=== PATIENT | female | born 1965 | race Caucasian/White ===

== ENCOUNTER 2018-12-26 09:06 | Day surgery (SDC) | payer BC ==
[~2018-12-26] VITALS: Ht 170.2 cm; Wt 116.1 kg
[~2018-12-26 09:06] MED LIST: ATOR40TA PO; B Complex1 EAC2 PO; CALC1.25T PO; CENTRUM COMPLE1 EACH; CENTRUM COMPLE1 EACH PO; CHOL10002; CO Q10100 MG; Coq-10100 MG PO; DHEA 10 MG TAB1 EACH PO; DHEA PO; ESTR2; FISH1000 PO; Fish Oil 10001000 MG; Flonase 0.05% N16 GM; IBUP800 PO; MELATONIN5 M1; METF500; OMEP20ER PO; OMEPRAZOLE20 MG; PROG100 PO; Prometrium200 MG; SERT100 PO; VITAMIN D35000 UNIT PO; ZYRTEC10 M1
--- NOTE | 2018-12-26 09:52 | NUR ---
12/26/18 0952 Williams Kraft 1ST IV ATTEMPT IN RIGHT HAND VEIN ROLLED AND BLEW, 2ND IV ATTEMPT IN RIGHT HAND VEIN ROLLED AND BLEW-CMT
== END 2018-12-26 11:34 | disposition home or self-care (01) ==
LOC: ORSCSDS 09:06
PROVIDERS: Internal Medicine Gastroenterology
PROC: 0DJD8ZZ Inspection of Lower Intestinal Tract, Via Natural or Artificial Opening Endoscopic (ICD-10-PCS; principal; 2018-12-26 10:15)
PROC: 0DB68ZX Excision of Stomach, Via Natural or Artificial Opening Endoscopic, Diagnostic (ICD-10-PCS; principal; 2018-12-26 10:15)
DX: Z01.818 Encounter for other preprocedural examination (principal); K21.9 Gastro-esophageal reflux disease without esophagitis; K31.7 Polyp of stomach and duodenum; Z12.11 Encounter for screening for malignant neoplasm of colon; K57.30 Diverticulosis of large intestine without perforation or abscess without bleeding; K64.8 Other hemorrhoids; G47.33 Obstructive sleep apnea (adult) (pediatric); Z87.891 Personal history of nicotine dependence; E66.01 Morbid (severe) obesity due to excess calories; Z68.41 Body mass index [BMI] 40.0-44.9, adult; Z79.899 Other long term (current) drug therapy; R73.03 Prediabetes; E78.49 Other hyperlipidemia; Z79.84 Long term (current) use of oral hypoglycemic drugs; F41.9 Anxiety disorder, unspecified
CPT/HCPCS: 43251; G0121; 82947; 88305; J2704; J7120